=== PATIENT | female | born 1985 | race Caucasian/White ===

== ENCOUNTER 2016-03-17 07:07 | Inpatient (IN) | payer BC, OTHER ==
[2016-03-17] MEDS ORDERED: MEPIVACAINE HCL 1% MPF 30 ML SOL INFIL PRN (07:19)
[2016-03-17] MEDS ORDERED: LACTATED RINGERS 1,000 ML IV PRN (07:19)
[2016-03-17] MEDS ORDERED: METHYLERGONOVINE MALEATE 0.2 MG/ML SOL IM PRN (07:19)
[2016-03-17] MEDS ORDERED: SODIUM CHLORIDE 0.9% FLUSH 10 ML SOL IV PRN (07:19)
[2016-03-17] MEDS ORDERED: CARBOPROST 250 MCG/ML SOL IM PRN (07:19)
[2016-03-17] MEDS ORDERED: FENTANYL CITRATE 50 MCG/ML SOL IV PRN (07:19)
[2016-03-17] MEDS ORDERED: OXYTOCIN 10000 MU/ML SOL IM PRN (07:19)
[2016-03-17] MEDS: SODIUM CHLORIDE 0.9% FLUSH 10 ML SOL IV SCH ×2 (08:20→16:21)
[2016-03-17] MEDS ORDERED: WITCH HAZEL 1 EA PAD TOP PRN (18:05)
[2016-03-17] MEDS ORDERED: METHYLERGONOVINE MALEATE 0.2 MG TAB PO PRN (18:05)
[2016-03-17] MEDS ORDERED: APAP/HYDROCODONE 325/5 TAB PO PRN (18:05)
[2016-03-17] MEDS ORDERED: BISACODYL 10 MG SUP PR PRN (18:05)
[2016-03-17] MEDS ORDERED: FLEET ENEMA PR PRN (18:05)
[2016-03-17] MEDS ORDERED: BENZOCAINE/MENTHOL 1 SPR TOP PRN (18:05)
[2016-03-17] MEDS ORDERED: TEMAZEPAM 15MG 15 MG CAP PO PRN (18:05)
[2016-03-17] MEDS: DOCUSATE SODIUM 100 MG SGL PO SCH (23:37)
[2016-03-17] MEDS: IBUPROFEN 600 MG TAB PO PRN (23:37)
[2016-03-18] MEDS: DOCUSATE SODIUM 100 MG SGL PO SCH ×2 (08:57→20:46)
[2016-03-18] MEDS: IBUPROFEN 600 MG TAB PO PRN ×2 (08:57→20:46)
[2016-03-18 09:15] VITALS: O2SAT 97
[2016-03-19] MEDS: IBUPROFEN 600 MG TAB PO PRN (05:35)
[2016-03-19 08:12] VITALS: BP 112/72; PULSE 60; RESP 16; TEMP 97.2
[2016-03-19] MEDS: DOCUSATE SODIUM 100 MG SGL PO SCH (11:13)
== END 2016-03-19 13:35 | disposition home or self-care (01) | DRG 560 ==
LOC: OB 07:07 → OBSVTOIN 07:07
PROVIDERS: ADMIT Family Medicine; ATTEND Family Medicine
PROC: 10907ZC Drainage of Amniotic Fluid, Therapeutic from Products of Conception, Via Natural or Artificial Opening (ICD-10-PCS; principal; 2016-03-17)
PROC: 10E0XZZ Delivery of Products of Conception, External Approach (ICD-10-PCS; 2016-03-17)
DX: O70.1 Second degree perineal laceration during delivery (principal); Z37.0 Single live birth; Z3A.40 40 weeks gestation of pregnancy
CPT/HCPCS: 59025; 85018; J0670; J2590

== ENCOUNTER 2018-02-22 20:14 | Emergency (ER) | payer BC ==
[2018-02-22 20:27] VITALS: TEMP 95.6
[2018-02-23 04:16] VITALS: RESP 20
[2018-02-23 04:17] VITALS: O2SAT 98
[2018-02-23 04:18] VITALS: BP 125/75; PULSE 98
== END 2018-02-22 23:31 | disposition home or self-care (01) ==
LOC: ED 20:14
DX: S61.011A Laceration without foreign body of right thumb without damage to nail, initial encounter (principal)
CPT/HCPCS: 12001; 99285; A6402

== ENCOUNTER 2018-04-26 01:45 | Inpatient (IN) | payer BC ==
[2018-04-26] MEDS ORDERED: FENTANYL 100MCG/2ML SOL IV PRN (02:20)
[2018-04-26] MEDS ORDERED: MEPIVACAINE HCL 1% MPF 30 ML/VIAL SOL INFIL PRN (02:20)
[2018-04-26] MEDS ORDERED: LACTATED RINGERS 1,000 ML IV PRN (02:20)
[2018-04-26] MEDS ORDERED: SODIUM CHLORIDE 0.9% FLUSH 10 ML SOL IV PRN (02:20)
[2018-04-26] MEDS ORDERED: CARBOPROST 250 MCG/ML SOL IM PRN (02:20)
[2018-04-26] MEDS ORDERED: OXYTOCIN 10000 MU/ML SOL IM PRN (02:20)
[2018-04-26] MEDS ORDERED: METHYLERGONOVINE MALEATE 0.2 MG/ML SOL IM PRN (02:20)
[2018-04-26] MEDS: SODIUM CHLORIDE 0.9% FLUSH 10 ML SOL IV SCH ×3 (02:30→21:03)
[2018-04-26 03:20] LABS: BASOPHILS % (AUTO) 0 % (0-3); EOSINOPHILS % (AUTO) 0 % (0-9); HEMATOCRIT 36 % (35-47); HEMOGLOBIN 12.2 gm/dl (12.0-15.5); LYMPHOCYTES % (AUTO) 19.4 % (10-50); MEAN CORPUSCULAR HEMOGLOBIN 30.8 pg (27.0-32.0); MEAN CORPUSCULAR HGB CONC 33.5 gm/dl (32.0-36.0); MEAN CORPUSCULAR VOLUME 92 fL (81-99); MONOCYTES % (AUTO) 5.3 % (0-12); NEUTROPHILS % (AUTO) 74.9 % (37-80)
[2018-04-26] MEDS ORDERED: IBUPROFEN 600 MG TAB PO PRN (09:34)
[2018-04-26] MEDS ORDERED: WITCH HAZEL 1 EA PAD TOP PRN (09:34)
[2018-04-26] MEDS ORDERED: FLEET ENEMA PR PRN (09:34)
[2018-04-26] MEDS ORDERED: METHYLERGONOVINE MALEATE 0.2 MG TAB PO PRN (09:34)
[2018-04-26] MEDS ORDERED: BENZOCAINE/MENTHOL 1 SPR TOP PRN (09:34)
[2018-04-26] MEDS ORDERED: APAP/HYDROCODONE 1 EACH TABLET PO PRN (09:34)
[2018-04-26] MEDS ORDERED: TEMAZEPAM 15MG 15 MG CAP PO PRN (09:34)
[2018-04-26] MEDS ORDERED: BISACODYL 10 MG SUP PR PRN (09:34)
[2018-04-26] MEDS: DOCUSATE SODIUM 100 MG SGL PO SCH (21:03)
[2018-04-27] MEDS: SODIUM CHLORIDE 0.9% FLUSH 10 ML SOL IV SCH ×3 (04:07→20:03)
[2018-04-27] MEDS: DOCUSATE SODIUM 100 MG SGL PO SCH ×2 (08:05→20:39)
[2018-04-28] MEDS: DOCUSATE SODIUM 100 MG SGL PO SCH (09:00)
[2018-04-28 11:06] VITALS: BP 111/70; PULSE 77; RESP 20; TEMP 98.2; O2SAT 96
== END 2018-04-28 11:34 | disposition home or self-care (01) | DRG 560 ==
LOC: OBSVTOIN 01:45 → OB 01:45
PROVIDERS: ADMIT Family Medicine; ATTEND Family Medicine
PROC: 10E0XZZ Delivery of Products of Conception, External Approach (ICD-10-PCS; principal; 2018-04-26)
PROC: 6A550ZT Pheresis of Cord Blood Stem Cells, Single (ICD-10-PCS; 2018-04-26)
DX: O80 Encounter for full-term uncomplicated delivery (principal); Z37.0 Single live birth; Z3A.40 40 weeks gestation of pregnancy
CPT/HCPCS: 36415; 59025; 85018; 85025; J0670; J2590; A9270-GY